=== PATIENT | female | born 1985 | race Caucasian/White ===

== ENCOUNTER 2023-07-18 07:45 | Outpatient (CLI) | payer BC, SELFPAY | END 2023-07-18 07:46 | disposition home or self-care (01) | LOC: NFLDREF 07-19 08:28 | PROVIDERS: PCP Family Medicine; Referring Provider Family Medicine; Visit Provider Family Medicine | DX: Z00.00 Encounter for general adult medical examination without abnormal findings (principal); M06.9 Rheumatoid arthritis, unspecified; Z13.6 Encounter for screening for cardiovascular disorders; Z79.1 Long term (current) use of non-steroidal anti-inflammatories (NSAID) | CPT/HCPCS: 80053; 80061; 84443 ==

== ENCOUNTER 2024-01-25 13:50 | Outpatient (CLI) | payer OTHER, SELFPAY ==
--- OUTSIDE RECORDS SUMMARY | 2024-01-25 13:54 | XMS_ITS | Clinical Summary ---
Author Name Unknown Organization [facility] Address [address] [place] [address]. [place] [address] Care Team Providers Care Hotel Night Auditor Name Role Phone [facility], [facility] Primary Care Provider Allergies No known active allergies Medications Medication Sig Dispensed Refills Start Date End Date Status Vit-Fe Fumarate-FA ( MULTIVITAMIN W/IRON) 27-0.8 MG tablet Take 1 tablet by mouth daily Active sertraline (ZOLOFT) 100 MG tabletIndications:M ajor Depressive Disorder Take 200 mg by mouth daily Active hydroxychloroquine (PLAQUENIL) 200 MG tabletIndications:R humatoid Arthritis Take 200 mg by mouth daily Active senna-docusate (SENOKOT-S/PERICOLA CE) 8.6-50 MG tabletIndications:S /P section Take 1 tablet by mouth 2 times daily as needed for constipation 20 tablet 1 12/05/2018 Active acetaminophen (TYLENOL) 325 MG tabletIndications:S /P section Take 3 tablets (975 mg) by mouth every 6 hours as needed for mild pain 50 tablet 12/05/2018 Active oxyCODONE (ROXICODONE) 5 MG tabletIndications:S /P section Take 1 tablet (5 mg) by mouth every 6 hours as needed for moderate to severe pain 2 tablet 12/05/2018 Active polyethylene glycol (MIRALAX) 17 GM/Dose powderIndications:C onstipation, unspecified constipation type Take 17 g (1 capful) by mouth daily 578 g 1 08/30/2021 Active Active Problems Problem Noted Date Diagnosed Date Cervical cerclage suture present 10/07/2021 Labor abnormal 12/02/2018 Indication for care in labor or delivery 019 premature rupture of membranes (PPROM) with onset of labor after 24 hours of rupture in third trimester, antepartum 12/01/2018 Depression affecting pregnan cy in third trimester, antepartum 12/01/2018 Maternal rheumatoid arthritis complicating pregn alfredo 12/01/2018 Immunizations Name Administration Dates Next Due TDAP Vaccine (Adacel) 12/03/2018() Social History Tobacco Use Types Packs/Day Years Used Date Smoking Tobacco: Never Smokeless Tobacco: Never Alcohol Use Standard Drinks/Week Comments No 0 (1 standard drink = 0.6 oz pur e alcohol) AUDIT-C Answer Date Recorded Frequency of Alcohol Consumption Never 12/01/2018 Average Number of Drinks Not on file 019 Frequency of Binge Drinking Not on file 11/2018 [place] Depression Scale Answer Date Recorded [place] Depression Score 3 12/04/2018 Last EPDS Self Harm Result Not on file 12/04 Adolescent Education Answer Date Record ed Getting School Help Needed Not on file 06/22 Sex and Gender Information Value Date Recorded Sex Assigned at Not on file Gender Identity Not on file Sexual Orientation Not on file Last Filed Vital Signs Vital Sign Reading Time Taken Comments Blood Pressure 106/57 10/07/2021 8:00 AM CANAL DRIVER Pulse 82 10/06/2021 6:21 PM CANAL DRIVER Temperature 36.9 ??C (98.4 ??F) 10/07/2021 8:00 AM CS T Respiratory Rate 20 10/07/2021 8:00 AM CANAL DRIVER Oxygen Saturation 98% 10/06/2021 10:26 PM CANAL DRIVER Inhaled Oxygen Concentration - - Weight 70.3 kg (155 lb) 10/06/2021 9:26 AM CANAL DRIVER Height 154.9 cm (5' 1) 10/06/2021 9:26 AM CANAL DRIVER Body Mass Index 29.29 10/06/2021 9:26 AM CANAL DRIVER Plan of Treatment Health Maintenance Due Date Last Done Comments ADVANCE CARE PLANNING 1987 ANNUAL REVIEW OF HM ORDERS 1987 GLUCOSE 1987 YEARLY PREVENTIVE VISIT 1987 HEPATITIS C SCREENING 2005 COVID-19 Vaccine ( season) 2023 11/16/2020, 10/26/2020 INFLUENZA VACCINE (#1) 2023 , 07/15/2019, 07/15/2019, Additional history exists PHQ-2 (once per calendar year) 2023 PAP 08/09/2024 08/09/2021, 11/0 06/2021, 06/06/2018, Additional history exists DTAP/TDAP/TD IMMUNIZATION (7 - Td or Tdap) 10/31/2028 10/31/2018, 06/11/2009, 02/09/1999, Additional history exists IPV IMMUNIZATION Completed 02/12/1992, , 03/01/1989, Additional history exists HEPATITIS B IMMUNIZATION Completed 001, 05/20/2001, 05/20/2001, Additional history exists MENINGITIS IMMUNIZATION Completed 03/28/2005, 03/28 HPV IMMUNIZATION Completed 05/31/2010, , 11/25/2009, Additional history exists Pneumococcal Vaccine: Pediatrics (0 to 5 Years) and At-Risk Patients (6 to 64 Years) Aged Out 09/07/2015, 05/05/2014 No longer eligibl e based on patient's age to complete this topic HIV SCREENING Completed 06/16/2018 RSV MONOCLONAL ANTIBODY Aged Out No l onger eligible based on patient's age to complete this topic Procedures Procedure Name Priority Date/Time Associated Diagnosis Comments HIV ANTIGEN ANTIBODY COMBO Routine 06/16/2018 HCL PAP SMEAR Routine 02/23/1999 1:18 PM CDT Gynecologic Examination from Last 3 Months or Most Recently Relevant to Health Maintenance Results * HIV Antigen Antibody Combo (06/16/2018) HIV Antigen Antibody Combo negative Blood specimen (specimen) Patient Reported LAB - BLOOD ORDERABL ES * PAP SMEAR (02/23/1999 1:18 PM CDT) Unlabelled DNR [facility] Biopsy Sent DNR [facility] Source VAG,CERV,E NDOCERV [facility] LMP POST [facility] PARA 3 [facility] 2 [facility] Clinical History DNR [facility] Therapy DNR [facility] Last Pap Diagnosis WITHIN NORMAL LIMITS [facility] PAP Date [id number] [facility] Specimen # DNR [facility] Tissue DNR [facility] Tissue Date DNR [facility] Statement of Adequacy [facility] Comment: SATISFACTORY FOR INTERPRETATION POST MENOPAUSAL PATIENT. ??NO ENDOCERVICAL CELLS SEEN. General Categorization DNR [facility] Descriptive Diagnosis [facility] Comment: WITHIN NORMAL LIMITS ATROPHIC CELL PATTERN Recommendations DNR [facility] DNR 114,,,,,, [facility] DNR DNR [facility] DNR DNR [facility] DNR DNR [facility] . [facility] Comment: ?PAP SMEARS ARE SUBJECT TO BOTH FALSE NEGATIVE AND FALSE ? POSITIVE RESULTS EVIDENCED BY DATA PUBLISHED IN THE ? MEDICAL LITERATURE. ??YOUR PATIENT'S RESULT SHOULD BE ? INTERPRETED IN THIS CONTEXT, TOGETHER WITH THE PATIENT'S ? HISTORY AND CLINICAL FINDINGS. TESTING LOCATION ? THIS TEST [facility] PERFORMED [facility] ? [address] [facility]. [address] ? PHONE NUMBERS FOR CYTOLOGY INQUIRES, INCLUDING SLIDE REQUESTS ? EXT. [phone] ?? EXT. [id number] 02/21/1999 Berna Viera MD LABORATORY [facility] from Last 3 Months or Most Recently Relevant to Health Maintenance Advance Directives For more information, please contact: [phone] * Full Code (Latest Code Status on File) Date Activated Date Inactivated Comments 10/07/2021 12:41 AM 10/07/2021 1:13 PM All basic and advanced life-sustaining interventions are performed as appropriate Question Answer Comments Code status determined by: Unable to dis cuss and no AD/POLST on file; continue PREVIOUSLY ORDERED code status Care Teams Hotel Night Auditor Relationship Specialty Start Date End Date [facility], [address] [address] PCP - General 12/02/18
--- OUTSIDE RECORDS SUMMARY | 2024-01-25 13:54 | XMS_ITS | Encounter Summary ---
Author Name Unknown Organization [facility] Address [address] [place] [address] Care Team Providers Care Recruitment Officer Name Role Phone Suzie Adame MD Primary Care Provider Encounter Details Date Type Department Care Team (Late st Contact Info) Description 01/15/2024 10:10 AM CDT Lab Visit [facility] [address] [place] [address] High risk medication use Social History Tobacco Use Types Packs/Day Years Used Date Smoking Tobacco: Never Smokeless Tobacco: Never Alcohol Use Standard Drinks/Week Comments Yes 2 (1 standard drink = 0.6 oz pur e alcohol) Alcoholic Drinks/day: rare Sex and Gender Information Value Date Recorded Sex Assigned at Female 04/08/2021 10:24 PM CDT Gender Identity Female 04/08/2021 10:24 PM CDT Sexual Orientation Straight 04/08/2021 10 :24 PM CDT documented as of this encounter Plan of Treatment Upcoming Encounters Date Type Department Care Team (Late st Contact Info) Description 07/25/2024 9:00 AM CDT Appointment [facility] [address] [place] [address] Luana Tobias MD [address] [place], [place] [address] documented as of this encounter Procedures Procedure Name Priority Date/Time Associated Diagnosis Comments RBC AND PLATELET MORPHOLOGY Routine 01/15/2024 10:03 AM CDT High risk medication use CBC AND DIFFERENTIAL PANEL Routine 01/15/2024 10:03 AM CDT High risk medication use COMPLETE BLOOD COUNT-W/DIFF Routine 01/15/2024 10:03 AM CDT High risk medication use documented in this encounter Results * Morphology-RBC and Platelet (01/15/2024 10:03 AM CDT) Pathologist [facility] RBC Morphology Reviewed 01/15/2024 11:46 AM CDT [facility] Platelet Estimate Adequate Adequate 01/15/2024 11:46 AM T [facility] Blood Venipuncture / Unknown 01/15/2024 10:03 AM CDT 01/15/2024 10:03 AM CDT Luana Tobias MD LAB_1 [facility] [address] [place] [address] * Complete Blood Count-W/Diff (01/15/2024 10:03 AM CDT) [facility] WBC 8.3 3.5 - 10.5 x10(9)/L 01/15/2024 11:46 AM CDT [facility] RBC 4.56 3.90 - 5.03 x10(12)/L 01/15/2024 11:46 AM T [facility] Hemoglobin 13.5 12.0 - 15.5 g/dL 01/15/2024 11:46 AM T [facility] HCT 40.3 34.9 - 44.5 % 01/15/2024 11:46 AM T [facility] MCV 88.4 80.0 - 100.0 fL 01/15/2024 11:46 AM T [facility] MCH 29.6 27.6 - 33.3 pg 01/15/2024 11:46 AM T [facility] MCHC 33.5 31.5 - 35.2 g/dL 01/15/2024 11:46 AM [facility] RDW 13.2 11.9 - 15.5 % 01/15/2024 11:46 AM [facility] Platelets 297 150 - 450 x10(9)/L 01/15/2024 11:46 AM [facility] Automated NRBC 0 <=0 /100 WBC 01/15/2024 11:46 AM [facility] Neutrophil Absolute 2.6 1.7 - 7.0 10(9)/L 01/15/2024 11:46 AM [facility] Lymphocyte Absolute 4.6 1.0 - 4.8 10(9)/L 01/15/2024 11:46 AM [facility] Monocyte Absolute 0.6 0.2 - 0.9 10(9)/L 01/15/2024 11:46 AM [facility] Eosinophil Absolute 0.4 0.0 - 0.5 10(9)/L 01/15/2024 11:46 AM [facility] Basophil Absolute 0.1 0.0 - 0.3 10(9)/L 01/15/2024 11:46 AM [facility] Immature Granulocyte % 0.2 0.0 - 0.5 % 01/15/2024 11:46 AM [facility] Blood Venipuncture / Unknown 01/15/2024 10:03 AM CDT 01/15/2024 10:03 AM CDT Luana Tobias MD LAB_1 [facility] [address] [place] [address] documented in this encounter Visit Diagnoses Diagnosis High risk medication use Encounter for long-term (current) use of other medications documented in this encounter Care Teams Recruitment Officer Relationship Specialty Start Date End Date Suzie Adame MD [address] [place] [address] PCP - General Family Practice 09/05/16 documented as of this encounter
--- OUTSIDE RECORDS SUMMARY | 2024-01-25 13:54 | XMS_ITS | Referral Summary ---
Author Name Unknown Organization [facility] Address [address] [place] [address]. [place] [address] Care Team Providers Care Car Wash Attendant Name Role Phone [facility], [facility] Primary Care Provider Allergies No [...] of Binge Drinking Not on file 11/2018 [place] Depression Scale Answer Date Recorded [place] Depression Score 3 12/04/2018 Last EPDS Self [...] Comments Blood Pressure 106/57 10/07/2021 8:00 AM OFFICE ASST Pulse 82 10/06/2021 6:21 PM OFFICE ASST Temperature 36.9 ??C (98.4 ??F) 10/07/2021 8:00 AM CS T Respiratory Rate 20 10/07/2021 8:00 AM OFFICE ASST Oxygen Saturation 98% 10/06/2021 10:26 PM OFFICE ASST Inhaled Oxygen Concentration - - Weight 70.3 kg (155 lb) 10/06/2021 9:26 AM OFFICE ASST Height 154.9 cm (5' 1) 10/06/2021 9:26 AM OFFICE ASST Body Mass Index 29.29 10/06/2021 9:26 AM OFFICE ASST Plan of Treatment Not on file Procedures Procedure Name Priority Date/Time Associated Diagnosis [...] SMEAR (02/23/1999 1:18 PM CDT) Unlabelled DNR [facility] Biopsy Sent DNR [facility] Source VAG,CERV,E NDOCERV [facility] LMP POST [facility] PARA 3 [facility] 2 [facility] Clinical History DNR [facility] Therapy DNR [facility] Last Pap Diagnosis WITHIN NORMAL LIMITS [facility] PAP Date [id number] [facility] Specimen # DNR [facility] Tissue DNR [facility] Tissue Date DNR [facility] Statement of Adequacy [facility] Comment: SATISFACTORY FOR INTERPRETATION POST MENOPAUSAL PATIENT. ??NO ENDOCERVICAL CELLS SEEN. General Categorization DNR [facility] Descriptive Diagnosis [facility] Comment: WITHIN NORMAL LIMITS ATROPHIC CELL PATTERN Recommendations DNR [facility] DNR 114,,,,,, [facility] DNR DNR [facility] DNR DNR [facility] DNR DNR [facility] . [facility] Comment: ?PAP SMEARS ARE SUBJECT TO BOTH FALSE NEGATIVE AND FALSE ? POSITIVE RESULTS EVIDENCED BY DATA PUBLISHED IN THE ? MEDICAL LITERATURE. ??YOUR PATIENT'S RESULT SHOULD BE ? INTERPRETED IN THIS CONTEXT, TOGETHER WITH THE PATIENT'S ? HISTORY AND CLINICAL FINDINGS. TESTING LOCATION ? THIS TEST WAS PERFORMED AT [facility] ? [address] [facility]. [address] ? PHONE NUMBERS FOR CYTOLOGY INQUIRES, INCLUDING SLIDE REQUESTS ? EXT. [id number] ?? EXT. [id number] 02/21/1999 Berna Viera MD LABORATORY [facility] from Last 3 Months or Most Recently Relevant to Health Maintenance Advance Directives For more information, please contact: [phone] * Full Code (Latest Code Status on File) Date Activated Date Inactivated Comments 10/07/2021 12:41 AM 10/07/2021 1:13 PM All basic and advanced life-sustaining interventions are performed as appropriate Question Answer Comments Code status determined by: Unable to dis cuss and no AD/POLST on file; continue PREVIOUSLY ORDERED code status Care Teams Car Wash Attendant Relationship Specialty Start Date End Date [facility] [address] [place] [address] PCP - General 12/02/18
--- OUTSIDE RECORDS SUMMARY | 2024-01-25 13:54 | XMS_ITS | Clinical Summary ---
Author Name Unknown Organization [facility] Address [place], [place] [address] Care Team Providers Care Natural Resource Officer Name Role Phone Clinic, No Pcp Or Primary Care Provider Unavaila ble Social History Tobacco Use Types Packs/Day Years Used Date Smoking Tobacco: Never Assessed Sex and Gender Information Value Date Recorded Sex Assigned at Not on file Gender Identity Not on file Sexual Orientation Not on file Plan of Treatment Health Maintenance Due Date Last Done Comments Tdap 1998 Depression screening for age 12+ 1999 HIV for age 15-65 2002 BMI (ht and wt on same day) for age 18+ 2005 Hepatitis C screening for age 18-79 2005 Tetanus booster 2007 COVID-19 vaccine series (2022- season) 2023 Influenza for age 9-49 06/01/2024 Pap test for age 21-65 08/09/2024 , 08/09/2021, 06/06/2018, Additional history exists Pneumococcal series for age 6-64 Aged Out No longer eligible based on patient's age to complete this topic Procedures Procedure Name Priority Date/Time Associated Diagnosis Comments HPV THIN PREP Routine 08/09/2021 10:30 AM NITROGLYCERIN DISTRIBUTOR from Last 3 Months or Most Recently Relevant to Health Maintenance Results * HPV HIGH RISK (08/09/2021 10:30 AM NITROGLYCERIN DISTRIBUTOR) TYPE 16 Negative Negative 08/11/2021 2:56 PM NITROGLYCERIN DISTRIBUTOR [facility] TRAL LABORATORY TYPE 18 Negative Negative 08/11/2021 2:56 PM NITROGLYCERIN DISTRIBUTOR [facility] TR[facility] LABORATORY OTHER HIGH RISK TYPES Negative Negative 08/11/2021 2:56 PM NITROGLYCERIN DISTRIBUTOR [facility] LABORATORY Other (Cervical/Vagina l) 08/09/2021 10:30 AM NITROGLYCERIN DISTRIBUTOR 08/10/2021 9:35 AM NITROGLYCERIN DISTRIBUTOR Narrative [facility] - 08/11/2021 2:56 PM NITROGLYCERIN DISTRIBUTOR HPV types 16, 18, 31, 33, 35, 39, 45, 51, 52, 56, 58, 59, 66 and 68 DNA were undetectable or below the pre-set threshold. Methodology: Dasha Ashley 4800 HPV Test Mehreen Uriostegui [facility] MICROBIOLOGY [facility] [address] [place] [address], from Last 3 Months or Most Recently Relevant to Health Maintenance Care Teams Natural Resource Officer Relationship Specialty Start Date End Date Clinic, No Pcp Or . PCP - General 05/16/18
--- OUTSIDE RECORDS SUMMARY | 2024-01-25 13:54 | XMS_ITS | Encounter Summary ---
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 Ramirez: [phone]. documented in this encounter Progress Notes * Luana Tobias MD - 01/15/2024 9:30 AM CDT SUBJECTIVE: Follow-up for chronic polyarticular JRA. History of present illness: This is a 6-month follow-up for the patient. She currently takes hydroxychloroquine 400 mg a day from Sunday to , and 200 mg from Sunday to Sunday. Her weight currently is about 150 lb. 5 milligram/kilogram is approximately 341 mg. She also takes Humira 40 mg every 2 weeks. At the beginning of this year, there was a delayed shipment of her Humira. During that time, she reported some discomfort over her knee joints. However, since she got back on Humira regularly, this has got better. She has no significant swollen joint. Her last ocular monitoring was a few months ago outside of [facility]. I still have not seen theresult. Advised her to have the results faxed to me to review and for documentation. According to her, there was no significant abnormality. She is updated with annual influenza vaccine. She received Prevnar 20 in 11/2022, a dose of Pneumovax in 08/2015. She is also updated with messenger RNA COVID vaccines. Past medical history, family and social history, current medications and adverse reactions were updated in EMR. Physical exams: BP 103/72 (BP Location: Left Arm, BP Cuff Size: Large) Pulse 81 Wt 148 lb (67.1kg) General appearance: A middle-aged female who was not in acute physical distress. Musculoskeletal exams: All 4 extremities were examined. No significant synovitis/inflammatory arthritis/dactylitis or effusion in any joints. Assessment and plan: 1. Chronic polyarticular JRA, doing well. 2. Chronic long-term high-risk medication and monitoring. Pain is rated as 2. RAPID 3 score is 2.3. 28 joint count: Total swollen joint 0. Total tender joint0. Although she had more symptoms earlier this year at the time when there was a delayed shipment of Humira, she is doing well currently after having been on Humira regularly. She has no active disease activity on examination today and I will continue Humira at the same dose 40 mg every 2 weeks. To adjust for her weight, she will take hydroxychloroquine 400 mg a day during the weekdays and 200 mg a day during the weekends. Reminded her to ask her internet marketing director to fax me the recent ocular examination for me to review and for documentation. Pneumovax was recommended and given to her today. Follow up again in 6 months, earlier if needed. documented in this encounter Plan of Treatment Upcoming Encounters Date Type Department Care Team (Late st Contact Info) Description 07/25/2024 9:00 AM CDT Appointment [facility] [address] [place] [address] Luana Tobias MD [address] [place] [id number] documented as of this encounter Visit Diagnoses Diagnosis Chronic polyarticular juvenile rheumatoid arthritis (HRC)- Primary Polyarticular juvenile rheumatoid arthritis, chronic or unspecified High risk medication use Encounter for long-term (current) use of other medications documented in this encounter Care Teams Fruit I Farmworker Relationship Specialty Start Date End Date Suzie Adame MD [address] [place] [address] PCP - General Family Practice 09/05/16 documented as of this encounter
--- OUTSIDE RECORDS SUMMARY | 2024-01-25 13:54 | XMS_ITS | Clinical Summary ---
Author Name Unknown Organization [facility] Address [address] [place] [address] Care Team Providers Care Manufacturing Engineering Director Name Role Phone Suzie Adame MD Primary Care Provider Source Comments You are receiving this document as you are listed as the primary care provider,follow-up provider, or the patient has been referred to you for consultation.This is in compliance with the Medicare and[facility] EHR Incentive Program,which states Providers who transition their patient to another setting of careor provider of care or refers their patient to another provider of care shouldprovide summary care record for each transition of care or referral. [facility] Allergies Active Allergy Reactions Criticality Noted Date Comments Trazodone Palpitations 09/07/2015 Medications Medication Sig Dispensed Refills Start Date End Date Status busPIRone (BUSPAR) 30 MG tablet 01/29/2021 Active HUMIRA 40 MG/0.4ML prefilled syringeIndicati ons:Rheumatoid Arthritis,M08.3 Inject 40 mg subcutaneously every 14 days. Indications: Rheumatoid Arthritis, M08.3 2 Each 12 04/09/2023 Active hydroxychloroqu ine (PLAQUENIL) 200 MG tabletIndicatio ns:Rheumatoid Arthritis 2 tabs a day after supper during weekdays. 1 tab/d on Sunday and Sunday. (new instruction as of 01/15/2024) Indications: Rheumatoid Arthritis 180 Tablet 1 01/15/2024 Active hydroxychloroqu ine (PLAQUENIL) 200 MG tabletIndicatio ns:Rheumatoid Arthritis 2 tabs a day after supper during week. 1 tab/d on Sunday, skip taking it on Sunday. (new instruction as of 06/12/2023) Indications: Rheumatoid Arthritis 180 Tablet 1 06/12/2023 4 Discontinue d(*Med change OR same med OR reorder, new dose/direct ions) Active Problems Problem Noted Date Diagnosed Date Encounter for long-term (current) use of medicat ions 05/05/2014 Overview: Encounter for long-term (current) use of other medications Rotator cuff syndrome of shoulder and allied dis orders 11/04/2013 Overview: Other specified disorders of rotator cuff syndrome of shoulder and allied disorders Diarrhea 12/20/2012 Encounter for IUD removal 05/11/2011 Overview: Inserted 10/2010. Paraguard IUD. ; Encounter for removal of intrauterine contraceptive device Last Assessment & Plan: Paragard IUD removal 07/21/2011. Mirena IUD insertion. Lot Number [id number], expiration 11/2013. Benign neoplasm of breast 02/08/2011 Overview: LW Modifier: needle bx neg 2004 ; Fibroadenoma Breast Insomnia 10/04/2010 Overview: Periodic Limb Movement Disorder Hypersomnia 10/04/2010 Overview: LW Modifier: on adderall-probable mild ADD also ; Hypersomnia Idiopathic NOS Molluscum contagiosum 03/25/2010 Major depressive disorder, recurrent episode Overview: Depression Major Recurrent NOS Chronic polyarticular juvenile rheumatoid arthri tis 04/01/2008 Overview: Arthritis Juvenile Rheumatoid Chronic Resolved Problems Problem Noted Date Diagnosed Date Resolved Date Rheumatoid arthritis 03/23/2008 05/ 013 Overview: LW Modifier: onset 5th grade-age 12 ; Arthritis Rheumatoid Depressive disorder 11/07/2004 03/23/20 06 Overview: LW Onset: [id number] ; Depression NOS Encounters Date Type Department Care Team Description 01/15/2024 10:10 AM CDT Lab Visit [facility] [address] [place] [address] High risk medication use 01/15/2024 9:30 AM CDT Office Visit [facility] [address] [place] [address] Luana Tobias MD Chronic polyarticular juvenile rheumatoid arthritis (HRC) (Primary Dx); High risk medication use from Last 3 Months Immunizations Name Administration Dates Next Due 4vHPV (Gardasil) 05/31/2010,11/25/2009, 9 DTP 02/12/1992, 9,1987,1986 Flu Vac Preserv Free (3+yrs) 10/08/2017, 07/15/2013,05/23/2012,2010,11/03/2010,06/11/2009,11/03/2008 H1n1 Miv Sanofi 3+ Yr (Injected) 12/08/2009 HepB Adult (Engerix-B, 20+ y rs, 3 dose series) 11/29/2000 HepB, Unspecified Formulation 05/20/2001, 001 Influenza IIV4 (Quadrivalent ) 0.5mL ([id number]) 06/12/2023,08/09/2021,08/06/2016,2013 Influenza, Unspecified Formulation 07/12/2015 MCV4 (Menactra) 03/28/2005 MMR 02/09/1999,06/23/1988 OPV, Trivalent (Orimune or tOPV) 992,03/01/1989,1987,1986 PCV13 (Prevnar) 05/05/2014 PCV20 (Gzlaqkt07) 11/07/2022 PPSV23 (Pneumovax) 01/15/2024,09/07/2015 Pfizer Monovalent 12+ 10/19/2021 Pfizer Monovalent 12+ Purple Top 11/16/2020,10/02 TB Skin Test (PPD) 04/13/2009 TDAP (BOOSTRIX) 06/11/2009 Td 02/09/1999 Varicella 09/09/2009 Social History Tobacco Use Types Packs/Day Years [...] Orientation Straight 04/08/2021 10 :24 PM CDT Last Filed Vital Signs Vital Sign Reading Time Taken Comments Blood Pressure 103/72 01/15/2024 9:28 AM CDT Pulse 81 01/15/2024 9:28 AM CDT Temperature 36.7 ??C (98 ??F) 06/12/2023 9:41 AM CDT Respiratory Rate 16 01/30/2013 9:52 AM CDT Oxygen Saturation 94% 01/30/2013 9:52 AM CDT Inhaled Oxygen Concentration - - Weight 67.1 kg (148 lb) 01/15/2024 9:28 AM CDT Height 157.5 cm (5' 2) 07/08/2013 10:59 AM CDT Body Mass Index - - Plan of Treatment Upcoming Encounters Date Type Department Care Team (Late st Contact Info) Description 07/25/2024 9:00 AM CDT Appointment [facility] [address] [place], [place] [phone] Luana Tobias MD [address] [place], [place] [phone] Health Maintenance Due Date Last Done Comments Hep C Screening (Preventive Services) 1987 HIV Screening (Preventive Services) 2003 Adult Preventive Visit 2005 Cervical Cancer Screening Due 10/31/2008 10/30/2008, 03/20/2008, 05/24/2007, Additional history exists DTaP/Tdap/Td (8 - Tdap) 02/13/2032 02/13/20, 10/31/2018, 06/11/2009, Additional history exists Zoster/Shingles (1 of 2) 2037 IPV (Polio) Completed 02/12/1992, 10/1988, 1987, Additional history exists HepB Completed 05/20/2001, 06/2001, 11/29/2000 MCV4 Completed 03/28/2005 HPV Vaccine Completed 05/31/2010, 11/02, 09/09/2009 Influenza Completed 06/12/2023, 07/01, 08/09/2021, Additional history exists COVID-19 Vaccine Completed 07/26/2023, , 10/19/2021, Additional history exists Pneumococcal Aged Out 01/15/2024, 03/2023, 09/07/2015, Additional history exists No longer eligible based on patient's age to complete this topic HepA Aged Out No longer eligi ble based on patient's age to complete this topic Hib Aged Out No longer eligi ble based on patient's age to complete this topic Procedures Procedure Name Priority Date/Time Associated Diagnosis Comments RBC AND PLATELET MORPHOLOGY Routine 01/15/2024 10:03 AM CDT High risk medication use COMPLETE BLOOD COUNT-W/DIFF Routine 01/15/2024 10:03 AM CDT High risk medication use CBC AND DIFFERENTIAL PANEL Routine 01/15/2024 10:03 AM CDT High risk medication use ANATOMICAL PATH LIQUID BASED Routine 10/30/2008 7:54 AM ASSISTANT COACH from Last 3 Months or Most Recently Relevant to Health Maintenance Results * Morphology-RBC and Platelet (01/15/2024 10:03 AM CDT) RBC Morphology Reviewed 01/15/2024 11:46 AM CDT [facility] Platelet Estimate Adequate Adequate 01/15/2024 11:46 AM CDT [facility] Blood Venipuncture / Unknown 01/15/2024 10:03 AM CDT 01/15/2024 10:03 AM CDT Luana Tobias MD LAB_1 [facility] [address] [place] [address] * Complete Blood Count-W/Diff (01/15/2024 10:03 AM CDT) WBC 8.3 3.5 - 10.5 x10(9)/L 01/15/2024 11:46 AM CDT [facility] RBC 4.56 3.90 - 5.03 x10(12)/L 01/15/2024 11:46 AM CDT [facility] Hemoglobin 13.5 12.0 - 15.5 g/dL 01/15/2024 11:46 AM CDT [facility] HCT 40.3 34.9 - 44.5 % 01/15/2024 11:[address] [facility] MCV 88.4 80.0 - 100.0 fL 01/15/2024 11:46 AM CDT [facility] MCH 29.6 27.6 - 33.3 pg 01/15/2024 11:46 AM CDT [facility] MCHC 33.5 31.5 - 35.2 g/dL 01/15/2024 11:46 AM CDT [facility] RDW 13.2 11.9 - 15.5 % 01/15/2024 11:46 AM CDT [facility] Platelets 297 150 - 450 x10(9)/L 01/15/2024 11:[address] [facility] Automated NRBC 0 <=0 /100 WBC 01/15/2024 11:46 AM CDT [facility] Neutrophil Absolute 2.6 1.7 - 7.0 10(9)/L 01/15/2024 11:46 AM CDT [facility] Lymphocyte Absolute 4.6 1.0 - 4.8 10(9)/L 01/15/2024 11:46 AM CDT [facility] Monocyte Absolute 0.6 0.2 - 0.9 10(9)/L 01/15/2024 11:46 AM CDT [facility] Eosinophil Absolute 0.4 0.0 - 0.5 10(9)/L 01/15/2024 11:46 AM CDT [facility] Basophil Absolute 0.1 0.0 - 0.3 10(9)/L 01/15/2024 11:46 AM CDT [facility] Immature Granulocyte % 0.2 0.0 - 0.5 % 01/15/2024 11:46 AM CDT [facility] Blood Venipuncture / Unknown 01/15/2024 10:03 AM CDT 01/15/2024 10:03 AM CDT Luana Tobias MD LAB[facility] [address] [place] [address], [facility] * Pap Smear (10/30/2008 7:54 AM ASSISTANT COACH) PAP Smear Liquid Based SEE TEXT No normal range HP CONVERSION Comment: Patient: GERRY SORTO ? CERVICAL CYTOLOGY REPORT Pathology # ??[id number] ?Date Obtained: ? Date Received: CYTOLOGIC IMPRESSION: Negative for intraepithelial lesion or malignancy. Verified 11/05/08 by: ??KGM ?(electronic signature) ? ADDITIONAL DATA LMP: CLINICAL HIST LIQUID BASED PAP CERVICAL SPECIMEN ADEQUACY: ?? Satisfactory. ENDOCERVICAL CELLS: ??Present. 10/30/2008 7:54 AM ASSISTANT COACH Sam Donis MD LAB_1 [facility] CONVERSION from Last 3 Months or Most Recently Relevant to Health Maintenance Care Teams Manufacturing Engineering Director Relationship Specialty Start Date End Date Suzie Adame MD [address] [place] [address] PCP - General Family Practice 09/05/16
== END 2024-01-25 13:51 | disposition home or self-care (01) ==
PROVIDERS: PCP Family Medicine; Visit Provider Nurse Practitioner Family
DX: Z11.59 Encounter for screening for other viral diseases (principal); W46.0XXA Contact with hypodermic needle, initial encounter
CPT/HCPCS: 86703; 86706; 86803

== ENCOUNTER 2024-07-04 10:58 | Outpatient (CLI) | payer BC, SELFPAY ==
[2024-07-04 13:09] LABS: Bacterial Vaginosis* Negative (Negative); Candida glab/krus NOT DETECTED (No Detected); Candida species NOT DETECTED (No Detected); Trichomonas vaginalis NOT DETECTED (No Detected)
== END 2024-07-04 10:59 | disposition home or self-care (01) ==
LOC: NFLDREF 10:59
PROVIDERS: PCP Family Medicine; Visit Provider Physician Assistant
DX: N89.8 Other specified noninflammatory disorders of vagina (principal)
CPT/HCPCS: 81513; 87481; 87661

== ENCOUNTER 2024-08-12 07:49 | Outpatient (CLI) | payer BC, SELFPAY ==
--- OUTSIDE RECORDS SUMMARY | 2024-08-15 10:35 | XMS_ITS | Clinical Summary ---
Author Organization [employer] [facility] Address [place], [place] [address] Care Team Providers Care Mold Finisher Name Role Phone Clinic, No Pcp Or [...] 2005 Tetanus booster 2007 COVID-19 vaccine series ( season) 2024 Influenza for age 9-49 06/01/2024 Pap test for age 21-65 08/09/2024 , 08/09/2021, 06/06/2018, Additional history exists Pneumococcal series for age 6-64 Aged Out No longer eligible based on patient's age to complete this topic Procedures Procedure Name Priority Date/Time Associated Diagnosis Comments HPV HIGH RISK Routine 08/09/2021 10:30 AM PAROLE OR PROBATION OFFICER from Last 3 Months or Most Recently Relevant to Health Maintenance Results * HPV HIGH RISK (08/09/2021 10:30 AM PAROLE OR PROBATION OFFICER) TYPE 16 Negative Negative 08/11/2021 2:56 PM PAROLE OR PROBATION OFFICER [facility] TYPE 18 Negative Negative 08/11/2021 2:56 PM PAROLE OR PROBATION OFFICER [facility] OTHER HIGH RISK TYPES Negative Negative 08/11/2021 2:56 PM PAROLE OR PROBATION OFFICER [facility] Other (Cervical/Vagina l) 08/09/2021 10:30 AM PAROLE OR PROBATION OFFICER 08/10/2021 9:35 AM PAROLE OR PROBATION OFFICER Narrative [facility] - 08/11/2021 2:56 PM PAROLE OR PROBATION OFFICER HPV types 16, 18, 31, 33, 35, 39, 45, 51, 52, 56, 58, 59, 66 and 68 DNA were undetectable or below the pre-set threshold. Methodology: Dasha Ashley 4800 HPV Test Mehreen NGUYEN [facility] [address] [place] [address], from Last 3 Months or Most Recently Relevant to Health Maintenance Care Teams Mold Finisher Relationship Specialty Start Date End Date Clinic, No Pcp Or . PCP - General 05/16/18
--- OUTSIDE RECORDS SUMMARY | 2024-08-15 10:35 | XMS_ITS | Referral Summary ---
Author Organization [place] Address [facility] [place] [address] Care Team Providers Care Tree And Shrub Worker Name Role Phone [facility], [facility] Primary Care Provider Allergies No known active allergies Medications Vit-Fe Fumarate-FA ( MULTIVITAMIN W/IRON) 27-0.8 MG tablet Take 1 tablet by mouth daily Active sertraline (ZOLOFT) 100 MG tabletIndication s:Major Depressive Disorder Take 200 mg by mouth daily Active hydroxychloroqui ne (PLAQUENIL) 200 MG tabletIndication s:Rhumatoid Arthritis Take 200 mg by mouth daily Active senna-docusate (SENOKOT-S/PERIC OLACE) 8.6-50 MG tabletIndication s:S/P section Take 1 tablet by mouth 2 times daily as needed for constipation 20 tablet 1 9 Active acetaminophen (TYLENOL) 325 MG tabletIndication s:S/P section Take 3 tablets (975 mg) by mouth every 6 hours as needed for mild pain 50 tablet 9 Active oxyCODONE (ROXICODONE) 5 MG tabletIndication s:S/P section Take 1 tablet (5 mg) by mouth every 6 hours as needed for moderate to severe pain 2 tablet 9 Active polyethylene glycol (MIRALAX) 17 GM/Dose powderIndication s:Constipation, unspecified constipation type Take 17 g (1 capful) by mouth daily 578 g 1 1 Active Active Problems Problem Noted Date Diagnosed [...] of Binge Drinking Not on file 11/2018 [place] Depression Scale Answer Date Recorded [place] Depression Score 3 12/04/2018 Last EPDS Self Harm Result Not on file 12/04 Adolescent Education Answer Date Record ed Getting School Help Needed Not on file 06/22 Comments No Sex and Gender Information Value Date Recorded Sex Assigned at Not on file Legal Sex Female 2:01 PM ACCOUNT ASSOCIATE Gender Identity Not on file Sexual Orientation Not on file Last Filed Vital Signs Vital Sign Reading Time Taken Comments Blood Pressure 106/57 10/07/2021 8:00 AM ACCOUNT ASSOCIATE Pulse 82 10/06/2021 6:21 PM ACCOUNT ASSOCIATE Temperature 36.9 ??C (98.4 ??F) 10/07/2021 8:00 AM CS T Respiratory Rate 20 10/07/2021 8:00 AM ACCOUNT ASSOCIATE Oxygen Saturation 98% 10/06/2021 10:26 PM ACCOUNT ASSOCIATE Inhaled Oxygen Concentration - - Weight 70.3 kg (155 lb) 10/06/2021 9:26 AM ACCOUNT ASSOCIATE Height 154.9 cm (5' 1) 10/06/2021 9:26 AM ACCOUNT ASSOCIATE Body Mass Index 29.29 10/06/2021 9:26 AM ACCOUNT ASSOCIATE Plan of Treatment Not on file Procedures Procedure Name Priority Date/Time Associated Diagnosis Comments HIV ANTIGEN ANTIBODY COMBO Routine 06/16/2018 from Last 3 Months or Most Recently Relevant to Health Maintenance Results * HIV Antigen Antibody Combo (06/16/2018) HIV Antigen Antibody Combo negative Blood specimen (specimen) us Patient Reported LAB - BLOOD ORDERABLES Final Re sult from Last 3 Months or Most Recently Relevant to Health Maintenance [facility] Advance Directives For more information, please contact: [phone] * Full Code (Latest Code Status on File) Date Activated Date Inactivated Comments 10/07/2021 12:41 AM 10/07/2021 1:13 PM All basic and advanced life-sustaining interventions are performed as appropriate Question Answer Comments Code status determined by: Unable to dis cuss and no AD/POLST on file; continue PREVIOUSLY ORDERED code status Care Teams Tree And Shrub Worker Relationship Specialty Start Date End Date [facility] [address] [place] [address] PCP - General 12/02/18
--- OUTSIDE RECORDS SUMMARY | 2024-08-15 10:35 | XMS_ITS | Encounter Summary ---
Author Organization [facility] Address [address] [place] [address] Care Team Providers Care Senior Construction Estimator Name Role Phone Suzie Adame MD Primary Care Provider Reason for Visit * Reason Comments Follow-up Encounter Details Date Type Department Care Team (Late st Contact Info) Description 07/25/2024 9:00 AM CDT Office Visit Rheumatology at [facility] [address] [place] [address] [place], [place] [phone] Luana Tobias MD [address] [place], [place] [address] Chronic polyarticular juvenile rheumatoid arthritis (HRC) (Primary [...] Sign Reading Time Taken Comments Blood Pressure 116/75 07/25/2024 9:10 AM CDT Pulse 77 07/25/2024 9:10 AM CDT Temperature - - Respiratory Rate - - Oxygen Saturation - - Inhaled Oxygen Concentration - - Weight 59.9 kg (132 lb) 07/25/2024 9:10 AM CDT Height - - Body Mass Index - - documented in this encounter Patient Instructions * Patient Instructions* Luana Tobias MD - 07/25/2024 9:00 AM CDT You are due for eye exam again about Oct-Nov, 2024. Get updated new COVID (now) vaccines in fall at local pharmacy when available by July,. No need to hold medications. documented in this encounter Progress Notes * Luana Tobias MD - 07/25/2024 9:00 AM CDT SUBJECTIVE: Follow-up for chronic polyarticular ALLISON. History of present illness: It has been about 6 months since I last saw her. The regimen of her disease modifying agent is the combination of hydroxychloroquine (400 mg a day during the weekdays, 200mg a day during the weekends) and Humira 40 mg every 2 weeks. The combination has been well tolerated and working well and this has continued to be the case. She has been off prednisone for quite sometimes. There has been no significant joint swelling, infection, potential exposure to tuberculosis,unusual swollen lymph glands drenching night sweating, hemoptysis/hematemesis, shortness of breath or B-type symptoms. Her last ocular monitoring was in October, and that was unremarkable. She is updated with pneumococcal vaccines. She has planned to have updated messenger RNA COVID vaccine at local pharmacy. She would like to have influenza vaccine today. Past medical history, family and social history, current medications and adverse reactions were updated in EMR. Physical exams: BP 116/75 (BP Location: Left Arm, BP Cuff Size: Regular) Pulse 77 Wt 132 lb (59.9 kg) General appearance: A young looking middle-aged female who was not in acute physical distress. Musculoskeletal exams: All 4 extremities were examined. No significant synovitis/inflammatory arthritis/dactylitis or effusion in any joints. Assessment and plan: 1. Chronic polyarticular ALLISON, in clinical remission. 2. Chronic long-term high-risk medication and monitoring. Pain is rated a 0s. RAPID 3 score is 0. 28 joint count: Total swollen joint 0. Total tender joint 0. Her ALLISON is under good control and in clinical remission. The current regimen works well. We could potentially cut down the dose of hydroxychloroquine while monitoring for clinical flare or continuingthe same regimen to avoid having a flare during the wintertime so that we do not need to use prednisone during the winter which could potentially increase the chance of having viral infection. Through the shared decision-making process, we mutually agreed to stay on the same regimen and will consider cutting down hydroxychloroquine in spring if she is doing well at that time. Reminded her that she is due to have an ocular monitoring again sometimes early next year, 2024. She usually has this done outside of [facility]. Reminded her to have the report faxed to me to review and for documentation. Flu shot was recommended and given to her today. Also advised her to have updated messenger RNA COVID vaccine at the local pharmacy. Follow up again in 6 months, earlier if needed. documented in this encounter Plan of Treatment Upcoming Encounters Date Type Department Care Team (Late st Contact Info) Description 03/13/2025 9:30 AM CDT Appointment Rheumatology at [facility] [address] [id number] Luana Tobias MD [address] [place], [place] [address] documented as of this encounter Visit Diagnoses Diagnosis Chronic polyarticular juvenile rheumatoid arthritis (HRC)- Primary Polyarticular juvenile rheumatoid arthritis, chronic or unspecified High risk medication use Encounter for long-term (current) use of other medications documented in this encounter Care Teams Senior Construction Estimator Relationship Specialty Start Date End Date Suzie Adame MD [address] [place] [address] PCP - General Family Practice 09/05/16 documented as of this encounter
--- OUTSIDE RECORDS SUMMARY | 2024-08-15 10:35 | XMS_ITS | Clinical Summary ---
Author Organization [facility] Address [address] [place] [address] Care Team Providers Care Computer Analyst Supervisor Name Role Phone Suzie Adame MD Primary Care Provider Source Comments You are receiving this document as you are listed as the primary care provider,follow-up provider, or the patient has been referred to you for consultation.This is in compliance with the Medicare and[facility] EHR Incentive Program,which states Providers who transition their patient to another setting of careor provider of care or refers their patient to another provider of care shouldprovide summary care record for each transition of care or referral. [employer] Allergies Active Allergy Reactions Criticality Noted Date Comments Trazodone Palpitations 09/07/2015 Medications Medication Sig Dispensed Refills Start Date End Date Status busPIRone (BUSPAR) 30 MG tablet 01/29/2021 Active HUMIRA, 2 SYRINGE, 40 MG/0.4ML prefilled syringeIndicatio ns:Rheumatoid Arthritis,M08.3 Inject 40 mg subcutaneously every 14 days. Indications: Rheumatoid Arthritis, M08.3 2 Each 8 04/29/2024 04/29/2025 Active hydroxychloroqui ne (PLAQUENIL) 200 MG tabletIndication s:Rheumatoid Arthritis 2 tabs a day after supper during weekdays. 1 tab/d on Sunday and Sunday. Indications: Rheumatoid Arthritis 180 Tablet 1 07/25/2024 Active sertraline (ZOLOFT) 100 MG tablet Take 1 Tablet (100 mg) by mouth daily. Active doxycycline hyclate (AKA PERIOSTAT) 20 MG tablet Take 1 Tablet (20 mg) by mouth daily. 11/01/2023 Active Active Problems Problem Noted Date Diagnosed Date Encounter for long-term (current) use of medicat ions 05/05/2014 Overview (05/23/2017): Encounter for long-term (current) use of other medications Rotator cuff syndrome of shoulder and allied dis orders 11/04/2013 Overview (05/23/2017): Other specified disorders of rotator cuff syndrome of shoulder and allied disorders Diarrhea 12/20/2012 Encounter for IUD removal 05/11/2011 Overview (05/23/2017): Inserted 10/2010. Paraguard IUD. ; Encounter for removal of intrauterine contraceptive device Assessment & Plan (07/23/2011 5:39 PM CDT): Paragard IUD removal 07/21/2011. Mirena IUD insertion. Lot Number [id number], expiration 11/2013. Benign neoplasm of breast 02/08/2011 Overview (05/23/2017): LW Modifier: needle bx neg 2004 ; Fibroadenoma Breast Insomnia 10/04/2010 Overview (05/23/2017): Periodic Limb Movement Disorder Hypersomnia 10/04/2010 Overview (05/23/2017): LW Modifier: on adderall-probable mild ADD also ; Hypersomnia Idiopathic NOS Molluscum contagiosum 03/25/2010 Major depressive disorder, recurrent episode Overview (05/23/2017): Depression Major Recurrent NOS Chronic polyarticular juvenile rheumatoid arthri tis 04/01/2008 Overview (05/23/2017): Arthritis Juvenile Rheumatoid Chronic Resolved Problems Problem Noted Date Diagnosed Date Resolved Date Rheumatoid arthritis 03/23/2008 013 Overview (05/23/2017): LW Modifier: onset 5th grade-age 12 ; Arthritis Rheumatoid Depressive disorder 11/07/2004 03/23/20 06 Overview (05/23/2017): LW Onset: 01Brl00 ; Depression NOS Encounters Date Type Department Care Team Description 07/25/2024 9:00 AM CDT Office Visit Rheumatology at [facility] [place] [address] Luana Tobias MD Chronic polyarticular juvenile rheumatoid [...] 05/20/2001, 001 Influenza IIV4 (Quadrivalent ) 0.5mL (04258) 06/12/2023,08/09/2021,08/06/2016,2013 Influenza ccIIV3 6 months+ (Flucelvax) 07/25/2024 Influenza, Unspecified Formulation 07/12/2015 MCV4 (Menactra) 03/28/2005 MMR 02/09/1999,06/23/1988 OPV, Trivalent (Orimune or tOPV) 992,03/01/1989,1987,1986 PCV13 (Prevnar) 05/05/2014 PCV20 (Aouojso62) 11/07/2022 PPSV23 (Pneumovax) 01/15/2024,09/07/2015 Pfizer Monovalent 12+ [...] Pulse 77 07/25/2024 9:10 AM CDT Temperature 36.7 ??C (98 ??F) 06/12/2023 9:41 AM CDT Respiratory Rate 16 01/30/2013 9:52 AM CDT Oxygen Saturation 94% 01/30/2013 9:52 AM CDT Inhaled Oxygen Concentration - - Weight 59.9 kg (132 lb) 07/25/2024 9:10 AM CDT Height 157.5 cm (5' 2) 07/08/2013 10:59 AM CDT Body Mass Index - - Plan of Treatment Upcoming Encounters Date Type Department Care Team (Late st Contact Info) Description 03/13/2025 9:30 AM CDT Appointment Rheumatology at [facility] [address] [phone] Luana Tobias MD [address] [place], [place] [phone] Health Maintenance Due Date Last Done Comments Hep C Screening (Preventive Services) 1987 HIV Screening (Preventive Services) 2003 Adult Preventive Visit 2005 Cervical Cancer Screening Due 10/31/2008 10/30/2008, 03/20/2008, 05/24/2007, Additional history exists COVID-19 Vaccine (6 - 2024-25 season) 2024 07/26/2023, 07/14/2022, 10/19/2021, Additional history exists DTaP/Tdap/Td (8 - Tdap) 02/13/2032 02/13/20, 10/31/2018, 06/11/2009, Additional history exists Zoster/Shingles (1 of 2) 2037 IPV (Polio) Completed 02/12/1992, 10/1988, 1987, Additional history exists HepB Completed 05/20/2001, 06/2001, 11/29/2000 MCV4 Completed 03/28/2005 HPV Vaccine Completed 05/31/2010, 11/02, 09/09/2009 Pneumococcal Aged Out 01/15/2024, 03/2023, 09/07/2015, Additional history exists No longer eligible based on patient's age to complete this topic Influenza Completed 07/25/2024, 06/01, 07/14/2022, Additional history exists HepA Aged Out No longer eligi ble based on patient's age to complete this topic Hib Aged Out No longer eligi ble based on patient's age to complete this topic RSV Aged Out No longer eligi ble based on patient's age to complete this topic Procedures Procedure Name Priority Date/Time Associated Diagnosis Comments ANATOMICAL PATH LIQUID BASED Routine 10/30/2008 7:54 AM GENERAL MERCHANDISE SALESPERSON from Last 3 Months or Most Recently Relevant to Health Maintenance Results * Pap Smear (10/30/2008 7:54 AM GENERAL MERCHANDISE SALESPERSON) PAP Smear Liquid Based SEE TEXT No normal range HP CONVERSION Comment: Patient: GERRY SORTO ? CERVICAL CYTOLOGY REPORT Pathology # ??[id number] ?Date Obtained: ? Date Received: CYTOLOGIC IMPRESSION: Negative for intraepithelial lesion or malignancy. Verified 11/05/08 by: ??KGM ?(electronic signature) ? ADDITIONAL DATA LMP: CLINICAL HIST LIQUID BASED PAP CERVICAL SPECIMEN ADEQUACY: ?? Satisfactory. ENDOCERVICAL CELLS: ??Present. 10/30/2008 7:54 AM GENERAL MERCHANDISE SALESPERSON Sam Donis MD LAB_1 HP CONVERSION from Last 3 Months or Most Recently Relevant to Health Maintenance Care Teams Computer Analyst Supervisor Relationship Specialty Start Date End Date Suzie Adame MD [address] [place] [address] PCP - General Family Practice 09/05/16
--- OUTSIDE RECORDS SUMMARY | 2024-08-15 10:35 | XMS_ITS | Clinical Summary ---
Author Organization [facility] Address [facility] [place] [address] Care Team Providers Care Senior Asic Engineer Name Role Phone [facility], [facility] Primary Care Provider Allergies No [...] of Binge Drinking Not on file 11/2018 [place] Depression Scale Answer Date Recorded [place] Depression Score 3 12/04/2018 Last EPDS Self Harm Result Not on file 12/04 Adolescent Education Answer Date Record ed Getting School Help Needed Not on file 06/22 Comments No Sex and Gender Information Value Date Recorded Sex Assigned at Not on file Legal Sex Female 2:01 PM ENGLISH LECTURER Gender Identity Not on file Sexual Orientation Not on file Last Filed Vital Signs Vital Sign Reading Time Taken Comments Blood Pressure 106/57 10/07/2021 8:00 AM ENGLISH LECTURER Pulse 82 10/06/2021 6:21 PM ENGLISH LECTURER Temperature 36.9 ??C (98.4 ??F) 10/07/2021 8:00 AM CS T Respiratory Rate 20 10/07/2021 8:00 AM ENGLISH LECTURER Oxygen Saturation 98% 10/06/2021 10:26 PM ENGLISH LECTURER Inhaled Oxygen Concentration - - Weight 70.3 kg (155 lb) 10/06/2021 9:26 AM ENGLISH LECTURER Height 154.9 cm (5' 1) 10/06/2021 9:26 AM ENGLISH LECTURER Body Mass Index 29.29 10/06/2021 9:26 AM ENGLISH LECTURER Plan of Treatment Health Maintenance Due Date Last Done Comments ADVANCE CARE PLANNING 1987 ANNUAL REVIEW OF HM ORDERS 1987 GLUCOSE 1987 YEARLY PREVENTIVE VISIT 1987 HEPATITIS C SCREENING 2005 PHQ-2 (once per calendar year) 2023 COVID-19 Vaccine (3 - 2024-25 season) 2024 11/16/2020, 10/26/2020 INFLUENZA VACCINE (#1) 2024 , 07/15/2019, 07/15/2019, Additional history exists PAP 08/09/2024 08/09/2021, 11/0 06/2021, 06/06/2018, Additional history exists DTAP/TDAP/TD IMMUNIZATION (7 - Td or Tdap) 10/31/2028 10/31/2018, 06/11/2009, 02/09/1999, Additional history exists RSV VACCINE (1 - 1-dose 75+ series) 2062 HEPATITIS B IMMUNIZATION Completed 001, 05/20/2001, 05/20/2001, [...] Most Recently Relevant to Health Maintenance Insurance [address] [place] [id number] [place] Advance Directives For more information, please contact: [phone] * Full Code (Latest Code Status on File) Date Activated Date Inactivated Comments 10/07/2021 12:41 AM 10/07/2021 1:13 PM All basic and advanced life-sustaining interventions are performed as appropriate Question Answer Comments Code status determined by: Unable to dis cuss and no AD/POLST on file; continue PREVIOUSLY ORDERED code status Care Teams Senior Asic Engineer Relationship Specialty Start Date End Date Clinic, [facility] [address] [place] [address] PCP - General 12/02/18
== END 2024-08-12 07:50 | disposition home or self-care (01) ==
LOC: NFLDREF 08-15 10:33
PROVIDERS: PCP Family Medicine; Referring Provider Family Medicine; Visit Provider Family Medicine
DX: Z00.00 Encounter for general adult medical examination without abnormal findings (principal); M06.9 Rheumatoid arthritis, unspecified; E78.5 Hyperlipidemia, unspecified; Z79.1 Long term (current) use of non-steroidal anti-inflammatories (NSAID); Z12.4 Encounter for screening for malignant neoplasm of cervix
CPT/HCPCS: 80053; 80061

== ENCOUNTER 2024-08-15 10:41 | Outpatient (CLI) | payer BC, SELFPAY ==
[2024-08-17 03:07] LABS: HPV Source Cervix; HPV, High Risk by TMA Not Detected
== END 2024-08-15 10:42 | disposition home or self-care (01) ==
PROVIDERS: PCP Family Medicine; Visit Provider Family Medicine
DX: Z01.419 Encounter for gynecological examination (general) (routine) without abnormal findings (principal); Z12.4 Encounter for screening for malignant neoplasm of cervix
CPT/HCPCS: 87624; 87625; 88141; 88142

== ENCOUNTER 2024-09-15 18:02 | Outpatient (CLI) | payer BC, SELFPAY ==
[2024-09-15 22:38] LABS: Bacterial Vaginosis* Negative (Negative); Candida glab/krus NOT DETECTED (No Detected); Candida species NOT DETECTED (No Detected); Trichomonas vaginalis NOT DETECTED (No Detected)
[2024-09-15 23:09] LABS: Chlamydia DNA Amplified* NOT DETECTED (No Detected); GC DNA Amplified* NOT DETECTED (No Detected)
== END 2024-09-15 18:03 | disposition home or self-care (01) ==
PROVIDERS: PCP Family Medicine; Visit Provider Physician Assistant
DX: N94.10 Unspecified dyspareunia (principal)
CPT/HCPCS: 81513; 87481; 87491; 87591; 87661

== ENCOUNTER 2025-06-19 11:14 | Outpatient (CLI) | payer BC, SELFPAY ==
[2025-06-19 13:29] LABS: Bacterial Vaginosis* Negative (Negative); Candida glab/krus NOT DETECTED (No Detected)
== END 2025-06-19 11:15 | disposition home or self-care (01) ==
PROVIDERS: PCP Family Medicine; Visit Provider Physician Assistant
DX: N89.8 Other specified noninflammatory disorders of vagina (principal)
CPT/HCPCS: 81513; 87481; 87661

== ENCOUNTER 2025-08-11 07:33 | Outpatient (CLI) | payer BC, SELFPAY | END 2025-08-11 07:34 | disposition home or self-care (01) | LOC: NFLDREF 08-14 04:18 | PROVIDERS: PCP Family Medicine; Referring Provider Family Medicine; Visit Provider Family Medicine | DX: E78.5 Hyperlipidemia, unspecified (principal) | CPT/HCPCS: 80053; 80061 ==